=== PATIENT | female | born 1955 | race Two or more races ===

== ENCOUNTER 2017-04-12 06:55 | Emergency (ER) | payer MEDICARE, MEDICAID ==
[~2017-04-12] VITALS: Ht 157.5 cm; Wt 99.8 kg
[2017-04-12 06:59] VITALS: BP 132/95
[2017-04-12] MEDS ORDERED: Ketorolac 30mg Inj IM ONE (07:15)
[2017-04-12] MEDS ORDERED: Cyclobenzaprine 10mg Tab ORAL ONE (08:00)
[2017-04-12 08:35] VITALS: BP 143/88
--- NOTE | 2017-04-12 09:08 | Emergency Room Report ---
History of Present Illness General Chief Complaint: Pain Source: Patient Present Illness HPI 61-year-old female presents ED for evaluation. Patient brought in by EMS from [facility]. Patient states she has muscle cramps and spasms throughout her entire body which started this morning. Patient states she gets this occasionally. Has been seen by neurologist and pain management. Patient says that her symptoms are typically relieved with Toradol. Pain is a 6/10, cramping, nonradiating. Denies any recent trauma. No other aggravating relieving factors. Denies any other associated symptoms Allergies: Coded Allergies: FLUOXETINE (Verified Allergy, Unknown, 04/12/17) Patient History Past Medical History: psych hx Past Surgical History: none Pertinent Family History: none Social History: Denies: smoking, alcohol use, drug use Last Menstrual Period: 1994 Now: No : 2 Para: 1 Immunizations: UTD Reviewed Nursing Documentation: PMH: Agreed, PSxH: Agreed Nursing Documentation-PMH Hx Cardiac Problems: No - hysterectomy 1986 History Of Psychiatric Problem: Yes - Depression Review of Systems All Other Systems: negative except mentioned in HPI Physical Exam Vital Signs Date Time Temp Pulse Resp B/P (MAP) Pulse Ox O2 Delivery O2 Flow Rate FiO2 04/12/17 06:44 98.1 110 17 132/95 98 Room Air Sp02 EP Interpretation: reviewed, normal General Appearance: no apparent distress, alert, GCS 15, non-toxic, obese Head: normocephalic, atraumatic Eyes: bilateral eye normal inspection, bilateral eye PERRL ENT: hearing grossly normal, normal pharynx, no angioedema, normal voice Neck: full range of motion, supple/symm/no masses Respiratory: chest non-tender, lungs clear, normal breath sounds, speaking full sentences Cardiovascular #1: regular rate, rhythm, no edema Cardiovascular #2: 2+ carotid (R), 2+ carotid (L), 2+ radial (R), 2+ radial (L) , 2+ dorsalis pedis (R), 2+ dorsalis pedis (L) Gastrointestinal: normal bowel sounds, non tender, soft, non-distended, no guarding, no rebound Rectal: deferred Genitourinary: normal inspection, no CVA tenderness Musculoskeletal: back normal, gait/station normal, normal range of motion, non- tender Neurologic: alert, oriented x3, responsive, motor strength/tone normal, sensory intact, speech normal Psychiatric: judgement/insight normal, memory normal, no suicidal/homicidal ideation, anxious Reflexes: 3+ bicep (R), 3+ bicep (L), 3+ tricep (R), 3+ tricep (L), 3+ knee (R) , 3+ knee (L) Skin: normal color, no rash, warm/dry, well hydrated Lymphatic: no adenopathy Medical Decision Making Diagnostic Impression: Primary Impression: Muscle spasm ER Course Hospital Course 61-year-old female presents ED complaining of diffuse muscle cramping Differential diagnoses include: pyelonephritis, kidney stone, muscle strain, Lspine fracture Clinical course Patient placed on stretcher. After initial history and physical I ordered toradol and flexeril for pain. Upon reassessment patient states pain has improved. Upon review of EMR, patient does not have any visits to ED requesting pain medications. Patient is not requesting any prescriptions on discharge. States she has medications at home Diagnosis - muscle spasm Stable and discharged to home. Followup with PMD. Return to ED if symptoms recur or worsen Last Vital Signs Date Time Temp Pulse Resp B/P (MAP) Pulse Ox O2 Delivery O2 Flow Rate FiO2 04/12/17 08:35 106 24 143/88 100 Room Air 04/12/17 07:40 98.0 Status: improved Disposition: HOME, SELF-CARE Condition: Stable Patient Instructions: Muscle Cramps and Spasms, [id number] CESAR DUDLEY M.D. Apr 12, 2017 09:08
== END 2017-04-12 08:41 | disposition home or self-care (01) ==
LOC: EDBD 06:55 → EMR 07:41
DX: R25.2 Cramp and spasm (principal); Z88.8 Allergy status to other drugs, medicaments and biological substances; Z90.710 Acquired absence of both cervix and uterus; E66.9 Obesity, unspecified
CPT/HCPCS: 96372; 99284; J1885